=== PATIENT | female | born 1990 | race Hispanic/Latino ===

== ENCOUNTER 2019-11-02 21:28 | Day surgery (SDC) | payer SELFPAY ==
[2019-11-02 21:57] VITALS: BP 101/59; TEMP 98; BMI 45.7
[2019-11-02] MEDS ORDERED: hydrALAZINE 20 MG/ML VIAL SLOW IVP PRN (22:25)
--- NOTE | 2019-11-02 22:36 | PDOC.BPN ---
- Brief Progress Note OBGYN Faculty Triage A EGA 36 weeks+ CC: spotting, no CTX HPI: 29 yo (prior x2, one at 36 weeks) here for spotting. No LOF, no VB , good FM. Has had care at other facility but none in this area. She is in custody. Past Med: negative Vitals WNL NST reactive I have seen the patient at bedside and I have reviewed/discussed the plan of care. She has follow up Monday at [facility] and will be escorted there as she is in custody until June 2020. We will get GBS and all OB labs now as she plans to deliver here. Please see full H&P by Dr Alves who saw the patient with me
--- NOTE | 2019-11-02 22:47 | PDOC.LDHP ---
Labor and Delivery H&P Chief complaint: other (spotting, lower abdominal pressure) HPI: Patient is a 29 yo who presents at 36.3 weeks EGA by patient report ( states she was dating by a 6 week ultrasound, unknown LMP) who presents to L&D with complaint of spotting that started approx 3-4 hours ago. Describes spotting as a light pink discharge seen on toilet paper. Denies any elisa bleeding or passage of clots. Also denies any loss of fluid. Patient also complains of a sensation of pressure throughout her lower abdomen and into her back. She does not think she is having contractions, and no contractions seen on tocolytic monitor currently. Endorses FM. Has had vaginal discharge throughout , no changes to this noted. She did have a UTI in the first trimester, but currently denies any dysuria or suprapubic pressure. Of note patient has been followed by [facility] in [place], [place] until very recently. She is currently incarcerated with [facility] and will be in custody until June 2020. Patient has an appointment scheduled with Anita Trinh at [facility] on Monday, November 03. Patient states she is currently taking her PNV, no other medications. Has never had issues in this or any prior with blood pressure or diabetes. Current gestational age (weeks): 36 (36.3 weeks by pt report) Due date: 11/27/19 (per pt report) Grav: 3 Para: 2 (0202) OB History Details: 1st delivered via at 37 weeks, was medically indicated induction for macrosomia 2nd delivered via at 36 weeks, went into labor spontaneously Current complications: none Past Medical History: no PMHx Current medications: pre-joaquim vitamins Previous surgical history: cholecystectomy Allergies/Adverse Reactions: Allergies Allergy/AdvReac Type Severity Reaction Status Date / Time No Known Allergies Allergy Unverified 11/02/19 21:57 Social history: none ( no tobacco or EtOH use) - Physical Exam Vital signs reviewed and normal: yes General: NAD, resting Heart: RRR Lungs: nonlabored breathing Abdomen: gravid Extremeties: no edema FHT: category 1, variability present [place] contractions every: none seen - Vaginal Exam cm dilated: 2 Effacement: 50% Station: -2 - OB Labs Blood type: unknown RH: unknown Antibody Screen: unknown HIV: unknown RPR: unknown HEPSAg: unknown 1 hour GCT: unknown GBS: unknown Urine drug screen: not done - Assessment Third Trimester at 36.3 weeks EGA - Plan Plan: other (rule out active labor, obtain OB labs) -: Patient is a 29 yo who presents with spotting and abdominal pressure Third Trimester -per patient she is at 36.3 weeks EGA today with BRITTANY of 11/27/2019 -obtain OB labs including HIV, RPR, Hep C, Hep B, G/C -check GBS swab, current status unknown -patient plans to establish care with Anita Trinh at [facility], has appt on November 03 -cervical check is 2/50%/-2, mid position, moderately firm with Demarco Score of 5 Vaginal Spotting, Abdominal Pressure -no elisa bleeding noted per history or on exam -sterile speculum exam revealed no blood, normal cervix and vaginal mucosa with physiologic discharge present in vaginal vault -check CBC, CMP, UA to rule out signs of infection, electrolyte issue, or cholestasis -obtain NST -continuous monitoring--currently FHT with baseline 145 bpm and no contractions noted on tocolytic monitor, good variability Dispo: Stable, will check labs as above. Continue to monitor in L&D triage. Will follow up with patient to reassess once labs results.
[2019-11-02 23:43] LABS: Bacteria/HPF None Seen HPF (None Seen); Bilirubin Negative (Negative); Blood, Urine Negative (Negative); Clarity Clear (Clear); Glucose, Urine (Dipstick) Normal (Negative); Ketone, Urine Negative (Negative); Leukocyte 75 Leu/uL (Negative); Nitrite Negative (Negative); Protein, Urine (Dipstick) Negative (Neg-Trace); RBC/HPF 0-3 HPF (0-3); Specific Gravity, Urine 1.011 (1.002-1.036); Squamous Epithelial 0-3 HPF (0-3); Urobilinogen Normal mg/dL (Less than 2); pH, Urine 6.5 (5.0-9.0)
[2019-11-03 00:10] LABS: #Lymphocytes 2.8 thou/uL (1.20-3.40); #Monocytes 0.5 thou/uL (0.11-0.59); %Eosinophils 0.4 % (0.0-10.0); %Lymphocytes 24.5 % (21.0-51.0); %Monocytes 4.3 % (0.0-10.0); %Neutrophils 70.8 % (42.0-75.0); Hemoglobin 11.3 g/dL (12.0-16.0); Mean Corpuscular HGB CONC 35.3 g/dL (32.0-36.0); Mean Corpuscular Hemoglobin 32.1 pg (27.0-31.0); Mean Platelet Volume 9.7 fL (7.4-10.4); Platelet Count 289 thou/uL (130-400); RBC Distribution Width 11.4 % (11.5-14.5); Red Blood Cell (RBC) Count 3.53 mill/uL (4.20-5.40); White Blood Cell (WBC) Count 11.3 thou/uL (4.8-10.8)
[2019-11-03 00:31] LABS: ALT (SGPT) 21 U/L (8-55); AST (SGOT) 21 U/L (5-34); Albumin 3.2 g/dL (3.5-5.0); Alkaline Phosphatase 158 U/L (40-110); Anion Gap 13 mmol/L (10-20); BUN (Urea Nitrogen) 10 mg/dL (7.0-18.7); Bilirubin, Total 0.3 mg/dL (0.2-1.2); Calc. Creatinine Clearance 232 mL/min (70-130); Carbon Dioxide 22 mmol/L (22-29); Chloride 105 mmol/L (98-107); Estimated GFR-MDRD Greater than 90; Globulin 3.9 g/dL (2.4-3.5); Glucose 84 mg/dL (70-105); Protein, Total 7.1 g/dL (6.0-8.3); Sodium 136 mmol/L (136-145)
--- NOTE | 2019-11-03 00:37 | PDOC.BPN ---
- Brief Progress Note 11/03/2019, 0030 Patient feeling better. Labs resulted and revealed WBC 11.3, H/H 11.3/32.1 and UA shows 75 leukocyte esterase & WBC 7-10 with 0-3 RBC, 0-3 Squamous Epithelial cells. Rest of routine OB labs still pending and can be discussed with patient at her follow up appointment. Provided written script to animal nutrition teacher for Keflex 500 mg BID, 7 day course. Patient already has follow up scheduled with Anita Trinh at [facility] on 11/04/2019. ER/Return precautions given. Patient discharged in stable condition back to alf.
[2019-11-03 00:40] LABS: Syphilis Antibody Nonreactive (Nonreactive); Syphilis Antibody Index 0.04 S/CO (<1.00 Non-Reactive)
[2019-11-03 00:47] LABS: HBSAg Index 0.11 S/CO (0-0.99); HIV (1/2) Antibody/Antigen Non-Reactive (NonReactive); HIV 1/2 INDEX 0.22 S/CO (<1.00); Hep B Surf Ag Non-Reactive S/CO (NonReactive); Hep C IgG Ab Non-Reactive (NonReactive); Hep C Index 0.17 S/CO (0-0.79)
[2019-11-03 19:22] LABS: Chlamydia by PCR Not Detected (NotDetected); GC by PCR Not Detected (NotDetected)
== END 2019-11-03 00:45 ==
LOC: L&D/OP 21:28
PROVIDERS: ATTEND Obstetrics & Gynecology
DX: O26.853 Spotting complicating pregnancy, third trimester (principal); O99.89 Other specified diseases and conditions complicating pregnancy, childbirth and the puerperium; R10.30 Lower abdominal pain, unspecified; Z3A.36 36 weeks gestation of pregnancy
CPT/HCPCS: 36415; 80053; 81001; 85025; 86762; 86780; 86803; 86850; 86900; 86901; 87081; 87340; 87389; 87491; 87591; 99285

== ENCOUNTER 2019-11-07 10:43 | Day surgery (SDC) | payer SELFPAY ==
[2019-11-07 11:26] VITALS: BMI 46.2
[2019-11-07 11:39] VITALS: BP 106/61; TEMP 98.6
== END 2019-11-07 11:49 ==
LOC: L&D/OP 10:43 → L&D 10:44 → L&D/OP 11:49
PROVIDERS: ATTEND Student in an Organized Health Care Education/Training Program
DX: O32.1XX3 Maternal care for breech presentation, fetus 3 (principal); Z3A.37 37 weeks gestation of pregnancy
CPT/HCPCS: 76815; 99282